=== PATIENT | male | born 1995 | race Caucasian/White ===

== ENCOUNTER 2025-02-19 23:45 | Emergency (ER) | payer MEDICAID ==
[~2025-02-19] VITALS: Ht 182.9 cm; Wt 79.4 kg
[2025-02-20 00:04] VITALS: TEMP 36.8; O2SAT 99
[2025-02-20 01:10] LABS: BASOPHILS % 1.0 % (0.0-2.0); EOSINOPHILS % 0.1 % (0.0-5.0); HEMATOCRIT. 43.2 % (42.0-52.0); HEMOGLOBIN. 14.9 g/dL (14.0-18.0); LYMPHOCYTES % 24.0 % (20.0-50.0); MEAN PLATELET VOLUME 8.0 fl (7.4-10.4); MONOCYTES % 10.5 % (2.0-8.0); NEUTROPHILS % 64.4 % (40.0-76.0); PLATELET 301 x1000/uL (130-400); RED BLOOD CELL COUNT 4.68 mill/uL (4.7-6.1); RED CELL DISTRIBUTION WIDTH 12.7 % (11.6-14.6)
[2025-02-20] MEDS: LORAZEPAM 2MG/ML UD SYRINGE IV NR (01:15)
[2025-02-20 01:17] LABS: CREATININE 0.9 mg/dL (0.6-1.3); UREA NITROGEN BLOOD 7 mg/dL (9-23)
[2025-02-20] MEDS: SODIUM CHLORIDE 0.9% 1,000 ML IV ONE (02:09)
[2025-02-20 04:10] VITALS: BP 130/80; PULSE 81; RESP 18; O2SAT 100
== END 2025-02-20 04:10 | disposition home or self-care (01) ==
LOC: ER 23:45
DX: T40.5X1A Poisoning by cocaine, accidental (unintentional), initial encounter (principal); R00.0 Tachycardia, unspecified; F10.90 Alcohol use, unspecified, uncomplicated; Y92.89 Other specified places as the place of occurrence of the external cause; Y90.9 Presence of alcohol in blood, level not specified
CPT/HCPCS: 99284; 80048; 85025; 36415; 71045; 93005; 96360; Z7610; J7030; J2060

== ENCOUNTER 2025-03-26 21:25 | Emergency (ER) | payer MEDICAID ==
[~2025-03-26] VITALS: Ht 185.4 cm; Wt 79.0 kg
[2025-03-26 21:35] VITALS: O2SAT 100
[2025-03-26 21:39] VITALS: BP 136/78; PULSE 123; RESP 18; TEMP 36.8
[2025-03-26 22:36] LABS: *AMPHETAMINES SCREEN URINE NEGATIVE (NEGATIVE); *BARBITURATES SCREEN URINE NEGATIVE (NEGATIVE); *BENZODIAZEPINES SCREEN URINE NEGATIVE (NEGATIVE)
[2025-03-26 22:37] LABS: *COCAINE SCREEN URINE PRESUMPTIVE POSITIVE (NEGATIVE); CANNABINOID URINE SCREEN NEGATIVE (NEGATIVE); ECSTASY MDMA SCREEN URINE NEGATIVE (NEGATIVE); METHADONE URINE SCREEN NEGATIVE (NEGATIVE); OPIATES URINE SCREEN NEGATIVE (NEGATIVE); PHENCYCLIDINE URINE SCREEN NEGATIVE (NEGATIVE)
== END 2025-03-27 00:20 | disposition left against medical advice (07) ==
LOC: ER 21:25
DX: F19.11 Other psychoactive substance abuse, in remission (principal); F14.10 Cocaine abuse, uncomplicated; F10.90 Alcohol use, unspecified, uncomplicated; Y90.9 Presence of alcohol in blood, level not specified
CPT/HCPCS: 71045; 80305; 93005; 99285